=== PATIENT | female | born 1950 | race Two or more races ===

== ENCOUNTER 2020-07-09 08:00 | Inpatient (IN) | payer OTHER ==
[~2020-07-09] VITALS: Ht 162.6 cm; Wt 87.5 kg
[2020-07-09] MEDS ORDERED: ZOCOR40 MG PO (11:09)
[2020-07-09] MEDS ORDERED: FORTAMET500 MG PO (11:09)
[2020-07-09] MEDS ORDERED: XERELTO PO (11:10)
[2020-07-09] MEDS ORDERED: PLAVIX75 MG PO (11:10)
[2020-07-09] MEDS ORDERED: SINGULAIR10 MG PO (11:11)
[2020-07-09] MEDS ORDERED: SYMBIC IH (11:11)
[2020-07-09] MEDS ORDERED: COZAAR100 MG PO (11:12)
[2020-07-09] MEDS ORDERED: THEOPHYLLINE A300 M1 PO (11:12)
[2020-07-09] MEDS ORDERED: PEPCI PO (11:13)
[2020-07-09] MEDS ORDERED: [UNRECOGNIZED DRUG - OTHER] IH (11:14)
[2020-07-15] MEDS ORDERED: FAMOTIDINE40 MG (09:55)
[2020-07-15] MEDS ORDERED: PANTOPRAZOLE SO40 MG (09:56)
[2020-07-15] MEDS ORDERED: RISEDRONATE SO150 MG (09:56)
[2020-07-15] MEDS ORDERED: ALL DAY ALLERGY10 MG (09:56)
[2020-07-15] MEDS ORDERED: FLONASE16 GM (09:56)
[2020-07-15] MEDS ORDERED: MAXIMUM D3325 MCG (09:56)
[2020-07-15] MEDS ORDERED: XARELTO20 MG (09:56)
[2020-07-17] MEDS ORDERED: BACTRIM DS TAB1 EACH PO (06:31)
[2020-07-17] MEDS ORDERED: XARELTO10 MG PO (06:31)
[2020-07-17] MEDS ORDERED: OXYC1TAB9 PO (06:31)
[2020-07-17] MEDS ORDERED: INTEGRA PLUS C1 EACH PO (06:31)
== END 2020-07-17 18:47 | DRG 470 ==
LOC: SURH 07-15 08:00 → O/R 07-15 08:36 → SURH 07-15 08:36
PROVIDERS: ADMIT Orthopaedic Surgery Sports Medicine; ATTEND Orthopaedic Surgery Sports Medicine
PROC: 0SRD0J9 Replacement of Left Knee Joint with Synthetic Substitute, Cemented, Open Approach (ICD-10-PCS; principal; 2020-07-15 10:45)
DX: M17.12 Unilateral primary osteoarthritis, left knee (principal); E11.9 Type 2 diabetes mellitus without complications; I10 Essential (primary) hypertension; E66.8 Other obesity; Z20.822 Contact with and (suspected) exposure to COVID-19